=== PATIENT | female | born 2000 | race Caucasian/White ===

== ENCOUNTER 2021-09-02 08:00 | Outpatient (CLI) | payer MEDICAID ==
[2021-09-02 12:12] LABS: BASOPHILS # (AUTO) 0.1 10^3/uL (0.0-0.1); BASOPHILS % (AUTO) 0.9 %; EOSINOPHILS # (AUTO) 0.8 10^3/uL (0.0-0.7); EOSINOPHILS % (AUTO) 10.9 %; HCT - HEMATOCRIT 41.4 % (37.0-47.0); HGB - HEMOGLOBIN 13.4 g/dL (12.0-16.0); LYMPHOCYTES # (AUTO) 1.4 10^3/uL (1.5-3.5); LYMPHOCYTES % (AUTO) 20.5 %; MEAN CORPUSCULAR HEMOGLOBIN 28.5 pg (27.0-31.0); MEAN CORPUSCULAR HGB CONC 32.4 g/dL (32.0-36.0); MEAN CORPUSCULAR VOLUME 88.1 fL (81.0-99.0); MEAN PLATELET VOLUME 11.3 fL (7.9-10.8); MONOCYTES # (AUTO) 0.5 10^3/uL (0.0-1.0); MONOCYTES % (AUTO) 6.7 %; NEUTROPHILS # (AUTO) 4.3 10^3/uL (1.5-6.6); NEUTROPHILS % (AUTO) 60.9 %; PLT - PLATELET COUNT 315 10^3/uL (130-450); RED CELL DISTRIBUTION WIDTH 12.8 % (12.0-15.0)
[2021-09-02 23:07] LABS: BACTERIAL VAGINOSIS DNA NEGATIVE (NEGATIVE); CANDIDA GLABRATA DNA NEGATIVE (NEGATIVE); CANDIDA GROUP DNA NEGATIVE (NEGATIVE); CANDIDA KRUSEI DNA NEGATIVE (NEGATIVE); TRICHOMONAS VAGINALIS DNA NEGATIVE (NEGATIVE)
[2021-09-03 01:33] LABS: CHLAMYDIA TRACHOMATIS DNA NEGATIVE (NEGATIVE); NEISSERIA GONORRHOEAE DNA NEGATIVE (NEGATIVE)
[2021-09-03 05:10] LABS: HCV AB <0.1 s/co ratio (0.0-0.9); RPR Non Reactive (Non Reactive)
[2021-09-03 07:09] LABS: HSV 2 IGG TYPE SPEC 5.69 index (0.00-0.90)
[2021-09-03 08:09] LABS: HIV SCREEN 4TH GENERATION Non Reactive (Non Reactive)
== END 2021-09-02 23:59 | disposition home or self-care (01) ==
LOC: LAB.N 08:00
PROVIDERS: ATTEND Physician Assistant Medical
DX: N92.1 Excessive and frequent menstruation with irregular cycle (principal); Z11.3 Encounter for screening for infections with a predominantly sexual mode of transmission
CPT/HCPCS: 36415; 81514; 85025; 86592; 86695; 86696; 86803; 87389; 87491; 87591; 87661

== ENCOUNTER 2021-09-11 08:00 | Outpatient (CLI) | payer MEDICAID | END 2021-09-11 23:59 | disposition home or self-care (01) | LOC: LAB.N 08:00 | PROVIDERS: ATTEND Family Medicine | DX: A60.00 Herpesviral infection of urogenital system, unspecified (principal) | CPT/HCPCS: 86694; 87255 ==

== ENCOUNTER 2023-04-17 23:21 | Outpatient (CLI) | payer SELFPAY | END 2023-04-17 23:22 | disposition critical access hospital (66) | LOC: EMS 23:21 | DX: Z04.6 Encounter for general psychiatric examination, requested by authority (principal); R06.02 Shortness of breath; F10.129 Alcohol abuse with intoxication, unspecified; R45.1 Restlessness and agitation; Z78.1 Physical restraint status | CPT/HCPCS: A0425; A0427 ==

== ENCOUNTER 2023-04-17 23:37 | Emergency (ER) | payer SELFPAY ==
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
[2023-04-18 00:11] VITALS: BP 100/53; O2SAT 97
== END 2023-04-18 00:11 | disposition home or self-care (01) ==
LOC: EDBD → EDUNIT# → ED 23:37
DX: F10.920 Alcohol use, unspecified with intoxication, uncomplicated (principal)
CPT/HCPCS: 99281; 99282